=== PATIENT | female | born 1995 | race Caucasian/White ===

== ENCOUNTER 2021-08-28 02:57 | Inpatient (IN) | payer OTHER ==
[2021-08-28] VITALS (62 sets, daily range): BP systolic 78–157; BP diastolic 43–95
[~2021-08-28] VITALS: Ht 170.2 cm; Wt 76.2 kg
[~2021-08-28 02:57] MED LIST: MULTTAB20 PO
[2021-08-28] MEDS ORDERED: HOME MED LIST COMPLETE! XX SCH (03:10)
[2021-08-28] MEDS ORDERED: OXYTOCIN INJ 10 UNITS/ML VIAL (J2590) IV PRN (03:55)
[2021-08-28] MEDS ORDERED: LIDOCAINE 1% MDV 20ML VIAL INFIL PRN (03:55)
[2021-08-28] MEDS ORDERED: ceFAZolin SOD 2 GM in IV 1 EA IV ONE (03:55)
[2021-08-28] MEDS ORDERED: BICITRA 30ML SOLN UDC PO ONE (03:55)
[2021-08-28] MEDS ORDERED: OXYTOCIN DRIP 30 UNITS in IV 1 EA IV PRN ×6 (03:55)
[2021-08-28] MEDS ORDERED: CARBOPROST TROMETHAMINE 250 MCG/ML AMP IM PRN (03:55)
[2021-08-28] MEDS ORDERED: TRANEXAMIC ACID INJection 1,000 MG in NS 100 ML IV PRN (03:55)
[2021-08-28] MEDS ORDERED: METHYLERGONOVINE MALEATE 0.2 MG/ML VIAL (J2210) IM PRN (03:55)
[2021-08-28] MEDS ORDERED: OXYTOCIN INJ 10 UNITS/ML VIAL (J2590) IM PRN (03:55)
[2021-08-28] MEDS ORDERED: ACETAMINOPHEN 650 MG SUPP PR ONE (03:55)
[2021-08-28] MEDS ORDERED: BUPIVACAINE HCL 0.25% 10ML VIAL SC ONE (03:55)
[2021-08-28 04:13] LABS: HEMATOCRIT 39.2 % (36.0-47.0); HEMOGLOBIN 13.2 g/dl (12.0-15.5); MEAN CORPUSCULAR HEMOGLOBIN 29.9 pg (27.0-33.0); MEAN CORPUSCULAR HGB CONC 33.7 g/dl (32.0-36.5); MEAN CORPUSCULAR VOLUME 88.9 fl (80.0-96.0); PLATELET COUNT, AUTOMATED 165 10^3/uL (150-450); RED BLOOD COUNT 4.41 10^6/uL (4.00-5.40); WHITE BLOOD COUNT 12.8 10^3/uL (4.0-10.0)
[2021-08-28] MEDS ORDERED: LACTATED RINGER'S 1000 ML IV STA (04:15)
[2021-08-28] MEDS ORDERED: OXYTOCIN DRIP 30 UNITS in IV 1 EA IV SCH ×2 (04:15→16:50)
[2021-08-28] MEDS ORDERED: FENTANYL 2MCG/ML ROPIVACAINE 0.2% IN 0.9% NACL 100ML IVBAG As Ordered ONE (05:14)
[2021-08-28] MEDS: LR 1,000 ML IV SCH ×3 (05:45→20:15)
[2021-08-28] MEDS ORDERED: diphenhydrAMINE 50MG/ML VIAL (J1200) IV PRN (06:15)
[2021-08-28] MEDS ORDERED: ONDANSETRON 4MG/2ML VIAL IV PRN (06:15)
[2021-08-28] MEDS ORDERED: EPIDURAL COMMENT XX SCH (06:15)
[2021-08-28] MEDS ORDERED: EPIDURAL/PCA KEYS XX PRN (06:15)
[2021-08-28] MEDS ORDERED: LACTATED RINGER'S 1000 ML IV PRN (06:15)
[2021-08-28] MEDS ORDERED: NALOXONE INJ 0.4MG/1ML VIAL (J2310 PER 1MG) IV PRN (06:15)
[2021-08-28] MEDS ORDERED: REFRIGERATOR IV KEYS XX PRN (06:15)
[2021-08-28] MEDS: FENTANYL/ROPIVACAINE/NACL BAG 100 ML EPIDURAL SCH ×2 (07:08→14:58)
[2021-08-28] MEDS: ePHEDrine SULFATE 25 MG/5 ML(5MG/ML) SYRINGE IV PRN ×2 (09:00→13:04)
[2021-08-28 16:47] LABS: CORD GAS ABE A -8.4; CORD GAS HCO3 A 20.6 MEQ/L; CORD GAS PH A 7.183 UNITS; CORD GAS PO2 A 20.4 mmHg; CORD GAS SBC A 16.5 MEQ/L; CORD GAS TCO2 A 22.3 MEQ/L
[2021-08-28] MEDS ORDERED: DIBUCAINE 1% OINTMENT 30GM TOP PRN (16:50)
[2021-08-28] MEDS ORDERED: ACETAMINOPHEN TAB 650MG DOSE (2X325MG) PO PRN (16:50)
[2021-08-28] MEDS ORDERED: IBUPROFEN 600MG TAB PO PRN (16:50)
[2021-08-28] MEDS ORDERED: DOCUSATE SODIUM 100MG CAPSULE PO PRN (16:50)
[2021-08-28] MEDS ORDERED: PROMETHAZINE 25 MG TAB PO PRN (16:50)
[2021-08-28] MEDS ORDERED: MEASLES,MUMPS,RUBELLA VACCINE INJ (MMR-II) (90707) SC SCH (16:50)
[2021-08-28] MEDS ORDERED: RHOGAM 300 MCG (1500 IU) INJ (J2790) IM SCH (16:50)
[2021-08-28 16:52] LABS: CORD GAS ABE V -5.8; CORD GAS HCO3 V 21.6 MEQ/L; CORD GAS O2 SAT V 31.9 %; CORD GAS PCO2 V 49.9 mmHg; CORD GAS PH V 7.255 UNITS; CORD GAS PO2 V 16.6 mmHg; CORD GAS SBC V 18.3 MEQ/L; CORD GAS TCO2 V 23.2 MEQ/L
[2021-08-28] MEDS: IBUPROFEN 800 MG TAB PO PRN (17:36)
[2021-08-28] MEDS: ACETAMINOPHEN 500 MG TAB PO PRN (20:51)
[2021-08-29] MEDS: FENTANYL/ROPIVACAINE/NACL BAG 100 ML EPIDURAL SCH (02:15)
[2021-08-29] MEDS: IBUPROFEN 800 MG TAB PO PRN ×3 (02:25→20:48)
[2021-08-29] MEDS: ACETAMINOPHEN 500 MG TAB PO PRN ×2 (05:24→14:21)
[2021-08-29 05:49] VITALS: BP 107/56
[2021-08-29] MEDS: PRENATAL VITAMINS CHEWABLE TABLET PO SCH (07:40)
[2021-08-29 18:00] VITALS: BP 125/65
[2021-08-30] MEDS: ACETAMINOPHEN 500 MG TAB PO PRN ×2 (01:05→09:23)
[2021-08-30] MEDS: IBUPROFEN 800 MG TAB PO PRN (05:31)
[2021-08-30 06:00] VITALS: BP 116/69
[2021-08-30] MEDS ORDERED: IBUP80TA PO (07:21)
[2021-08-30] MEDS ORDERED: ACET-683 PO (07:21)
[2021-08-30] MEDS ORDERED: COLA100C5 PO (07:21)
[2021-08-30] MEDS: PRENATAL VITAMINS CHEWABLE TABLET PO SCH (09:23)
== END 2021-08-30 12:15 | disposition home or self-care (01) | DRG 807 ==
LOC: M LDO 02:57 → M LDI 04:02 → M OBS 19:45
PROVIDERS: ADMIT Obstetrics & Gynecology; ATTEND Obstetrics & Gynecology
PROC: 10E0XZZ Delivery of Products of Conception, External Approach (ICD-10-PCS; principal; 2021-08-28)
PROC: 0KQM0ZZ Repair Perineum Muscle, Open Approach (ICD-10-PCS; 2021-08-28)
DX: O34.219 Maternal care for unspecified type scar from previous cesarean delivery (principal); Z37.0 Single live birth; Z3A.39 39 weeks gestation of pregnancy; O77.0 Labor and delivery complicated by meconium in amniotic fluid; O70.1 Second degree perineal laceration during delivery